=== PATIENT | male | born 1995 | race Caucasian/White ===

== ENCOUNTER 2017-01-17 23:06 | Observation (INO) | payer BC ==
[~2017-01-17] VITALS: Ht 182.9 cm; Wt 99.2 kg
--- NOTE | ~2017-01-17 | HP ---
ADMIT: 01/17/2017 RM/LOC: 617 [facility] MR#: [id number] [facility]#: [id number] [address] [address] WY[place] WHITE [address] [place] [address] Pre-OP History and Physical SEX: M AGE: 21 : 1995 DATE OF SERVICE: 01/18/2017 HISTORY OF PRESENT ILLNESS: The patient is a 21-year-old male who was transferred from [facility] in [place] last evening where he had about a 12-hour history of abdominal pain, became more severe, localized to the right lower quadrant. He had leukocytosis of 17,000. There he was worked up with CT scan, which showed evidence of appendicitis. He was sent down for pain control, IV antibiotics, and definitive surgical management. PAST MEDICAL HISTORY: Negative. PAST SURGICAL HISTORY: Includes knee arthroscopy in the past. MEDICATIONS: He takes no home medications. ALLERGIES: HE HAS NO ALLERGIES. FAMILY HISTORY: Noncontributory. SOCIAL HISTORY: He chews smokeless tobacco and drinks alcohol socially. REVIEW OF SYSTEMS: Denies headaches, chest pain. No shortness of breath. He has had the abdominal pain per HPI. No extremity complaints. No hematologic, neurologic, or psychiatric issues. PHYSICAL EXAMINATION: HEENT: He has a low-grade temp. HEART: Regular. LUNGS: Clear. ABDOMEN: Soft, nondistended. Tender to palpation in right lower quadrant. EXTREMITIES: No peripheral edema. NEUROLOGICAL: No focal neurologic deficits. ASSESSMENT: The patient is a 21-year-old with signs, symptoms, and radiographic evidence consistent with appendicitis. PLAN: Laparoscopic appendectomy. Risks and benefits were discussed. Cristiano Arevalo MD/ dante JOB #: [id number] CC: Cristiano Arevalo, Attending Physician Cristiano Arevalo, Family Physician
[2017-01-19] MEDS ORDERED: HYDROCODON-ACE1 EAC4 PO (14:18)
--- NOTE | 2017-01-30 08:55 | HP ---
ADMIT: 01/17/2017 RM/LOC: 617 [facility] MR#: [id number] [id number] 26[address] [facility] [address] [place] [id number] WYATT WHITE [address] [place] [address] Pre-OP History and Physical SEX: M AGE: 21 : 1995 DATE OF SERVICE: CHIEF COMPLAINT: Abdominal pain. HISTORY OF PRESENT ILLNESS: Wyatt is a very pleasant 21-year-old male, who was at work where he suddenly developed abdominal pain around 08:00 a.m., yesterday. He denies ever having prior events like this before. His pain progressively got worse, and then he sought medical treatment at [facility]. At that time, it was noted that he was running a fever, had leukocytosis, and CT findings of early appendicitis. Currently, the patient denies any emesis, but he does have some nausea. He further denies any diarrhea or constipation. He denies ever feeling febrile. PAST MEDICAL HISTORY: No significant history. PAST SURGICAL HISTORY: Knee scope. ALLERGIES: NO KNOWN DRUG ALLERGIES. MEDICATIONS: No home medications. FAMILY HISTORY: Had a brother with appendicitis and had his appendix taken out. SOCIAL HISTORY: The patient is a tobacco user. He chews and a can lasts him about 1 to 2 days. He also smokes when he drinks alcohol, but he believes he has one drink per week. REVIEW OF SYSTEMS: CONSTITUTIONAL: The patient has a fever but denies feeling any chills or night sweats. The rest of a comprehensive 10-point review of systems was performed and all other systems are negative. PHYSICAL EXAMINATION: GENERAL: The patient is in no acute distress. He is alert and oriented. HEENT: Head is normocephalic and atraumatic. EOMS are intact. Conjunctivae free of icterus, erythema, or pallor. Pinnae, free of deformities. Nose, midline. No tracheal deviation. NECK: Supple. SKIN: Negative for jaundice, clubbing, edema, pallor, or cyanosis. LUNGS: Clear to auscultation bilaterally. Normal respiratory effort. HEART: Distal pulses intact. Regular rate and rhythm. No murmurs noted. ABDOMEN: Soft, nondistended. Positive McBurney point tenderness. Positive obturator sign. Negative psoas sign. Negative Rovsing's sign. NEURO: Grossly intact. LABORATORY DATA: The following was obtained from an outside facility. [facility] ADMIT: 01/17/2017 RM/LOC: 617 [facility] MR#: [id number] [address] [id number] [place] [address] Pre-OP History and Physical SEX: M AGE: 21 : 1995 blood cell count elevated at 17.3, there is a left shift. DIAGNOSTIC IMAGING: CT of abdomen and pelvis at the [facility] revealed early acute appendicitis. ASSESSMENT: Acute appendicitis. PLAN: The plan is to have the patient undergo laparoscopic appendectomy performed this morning by Dr. Arevalo. I discussed the risks, alternatives, benefits, and complications of the procedure with the patient to which he is in agreement of this plan, had all his questions answered and would like to proceed. He is n.p.o., so we will be proceeding shortly. ILIANA Renae / Cristiano Arevalo MD / dante JOB #: [id number] CC: Cristiano Arevalo, Attending Physician Cristiano Arevalo, Family Physician
--- NOTE | 2017-01-30 08:55 | OR ---
ADMIT: 01/17/2017 RM/LOC: W[facility] [id number] [facility] [id number] [address] [id number] WYATT WHITE [address] [place] [address] Operative/Delivery Room Report SEX: M AGE: 21 : 1995 SURGERY DATE: 01/18/2017 SURGEON: Cristiano Arevalo MD PREPROCEDURE DIAGNOSIS: Acute appendicitis. POSTPROCEDURE DIAGNOSIS: Acute appendicitis. PROCEDURE: Laparoscopic appendectomy. INDICATIONS: The patient is a 21-year-old, who presents with signs, symptoms, and radiographic evidence consistent with acute appendicitis, who presents for laparoscopic appendectomy. FINDINGS: The patient was taken to the operative room. General endotracheal anesthesia was induced. The patient's abdomen was prepped and draped in normal sterile fashion. The case was begun by making a transverse, supraumbilical 5 mm skin incision using #11 blade. A retractable 5-mm port was placed within the abdomen. The abdomen was insufflated with CO2 to an intra-abdominal pressure of 15 mmHg. A camera was placed showing no bowel or vascular injury. A suprapubic 5 mm port as well as a left lower quadrant 12 mm port was placed under direct vision. Case was begun by noting a non- perforated mildly inflamed appendix in the right lower quadrant. The appendix was mobilized from the retroperitoneum using Endo Bhumika dissection. A window was made between the appendix and mesoappendix using a [place] instrument. The appendix was divided, flushed with the cecum with an Endo MARY ANNE 45, 2.5 mm stapler and the mesoappendix was divided with the same staple load. The appendix was placed in an EndoCatch bag and brought out through the left lower quadrant port site. On reexamination of the operative site, there was a mild amount of mesenteric staple line bleeding controlled with electrocautery. On completion, both enteric and mesenteric staple lines looked good with no bleeding, no enteric leakage. The right lower quadrant pelvis were then irrigated and suctioned out, 0.5% Marcaine was injected subdermally and subfascially for postoperative analgesia. The left lower quadrant fascial incision was closed with [id number] 0 Polysorb suture passer. The air was desufflated, and the port sites removed. The skin sites were closed with interrupted 4-0 Vicryl subcuticular skin stitches. The wounds were cleaned and dried. Steri-Strips and Tegaderm were applied over the top. Needle, sponge, and instrument counts were correct at the ed of the case. The patient was extubated and wheeled to recovery room in good condition. Cristiano Arevalo MD/ dante JOB #: [id number] CC: Cristiano Arevalo, Attending Physician Cristiano Arevalo, Family Physician
== END 2017-01-18 15:53 | disposition home or self-care (01) ==
LOC: 6PED 23:35 → WOR 01-18 15:53
PROVIDERS: ADMIT Surgery
PROC: 0DTJ4ZZ Resection of Appendix, Percutaneous Endoscopic Approach (ICD-10-PCS; principal; 2017-01-18)
DX: K35.80 Unspecified acute appendicitis (principal); K21.9 Gastro-esophageal reflux disease without esophagitis; Z88.8 Allergy status to other drugs, medicaments and biological substances; Z79.899 Other long term (current) drug therapy